=== PATIENT | female | born 1975 | race Caucasian/White ===

== ENCOUNTER 2023-03-17 17:35 | Emergency (ER) | payer BC ==
[~2023-03-17] VITALS: Ht 160 cm; Wt 81.6 kg
[2023-03-17 18:00] VITALS: BP_SYST 104; PULSE 90; RESP 20; TEMP 98; O2SAT 98
[2023-03-17] MEDS ORDERED: KETOROLAC TROMETHAMINE 60 MG/2 ML VIAL IM ONE (19:15)
[2023-03-17] MEDS ORDERED: carisoprodoL 350 MG TABLET PO ONE (19:45)
[2023-03-17] MEDS ORDERED: SOM350 PO (20:45)
[2023-03-17] MEDS ORDERED: DICL75TA5 PO (20:45)
[2023-03-17 21:02] VITALS: BP_SYST 114; PULSE 82; RESP 18; TEMP 98; O2SAT 98
== END 2023-03-17 21:02 | disposition home or self-care (01) ==
LOC: SED 17:35
DX: S39.012A Strain of muscle, fascia and tendon of lower back, initial encounter (principal); Z88.2 Allergy status to sulfonamides; Z79.899 Other long term (current) drug therapy; X58.XXXA Exposure to other specified factors, initial encounter; Y93.89 Activity, other specified; Y92.89 Other specified places as the place of occurrence of the external cause; Y99.8 Other external cause status
CPT/HCPCS: 99283; 96372; J1885